=== PATIENT | male | born 1950 | race Caucasian/White ===

== ENCOUNTER → 2020-10-08 12:00 | Outpatient (CLI) | payer MEDICARE, OTHER, SELFPAY ==
[2020-10-08 12:25] LABS: Add Manual Diff / Slide Review NO; Basophils Absolute Auto 100 /uL (0-100); Basophils Percent Auto 0.9 % (0-2); Eosinophils Absolute Auto 200 /uL (0-450); Eosinophils Percent Auto 3.3 % (2-4); Hematocrit 42.5 % (41-53); Hemoglobin 14.8 g/dL (13.5-17.5); Lymphocytes Absolute Auto 1900 /uL (1100-4500); Lymphocytes Percent Auto 26.2 % (25-40); Mean Corpuscular HGB Conc 34.9 % (30-36); Mean Corpuscular Hemoglobin 32.8 PG (26-34); Mean Corpuscular Volume 94.1 fL (80-100); Monocytes Absolute Auto 800 /uL (0-900); Monocytes Percent Auto 10.5 % (3-14); Neutrophils Absolute Auto 4200 /uL (1500-7000); Neutrophils Percent Auto 59.1 % (50-75); Platelet Count 185 X10^3/uL (150-400); Red Blood Cell Count 4.51 X10^6/uL (4.5-5.9); White Blood Cell Count 7.2 X10^3/uL (4.5-11.0)
[2020-10-08 13:26] LABS: BUN Creatinine Ratio 24.7 (6-22); Blood Urea Nitrogen 18 mg/dL (9-20); Calcium 9.5 mg/dL (8.4-10.2); Carbon Dioxide 29 mmol/L (22-32); Chloride 106 mmol/L (98-107); Estimated Glomerular Filt Rate > 60.0 mL/min (>60); Glucose 107 mg/dL (80-110); HEMOLYSIS < 15 (0-50); Potassium 3.7 mmol/L (3.4-5.1); Sodium 141 mmol/L (137-145)
== END ==
PROVIDERS: PCP Family Medicine; Referring Provider Orthopaedic Surgery Orthopaedic Surgery of the Spine; Visit Provider Orthopaedic Surgery Orthopaedic Surgery of the Spine
DX: Z01.818 Encounter for other preprocedural examination (principal); Z01.812 Encounter for preprocedural laboratory examination
CPT/HCPCS: 36415; 80048; 85025; 93005; 93010

== ENCOUNTER → 2020-11-03 09:36 | Outpatient (CLI) | payer MEDICARE, OTHER, SELFPAY ==
[2020-11-03 10:14] LABS: COVID19 -Nasal RAPID Negative (Negative)
== END ==
PROVIDERS: PCP Family Medicine; Visit Provider Physician Assistant
DX: Z01.812 Encounter for preprocedural laboratory examination (principal); Z20.822 Contact with and (suspected) exposure to COVID-19
CPT/HCPCS: 87635

== ENCOUNTER 2020-11-05 06:11 | Inpatient (IN) | payer MEDICARE, OTHER, SELFPAY ==
[2020-10-29 12:47] VITALS: BMI 35.9
[2020-11-05] VITALS (18 sets, daily range): BP systolic 105–148; BP diastolic 65–91; PULSE 7–85; RESP 9–18; TEMP 36.3–36.7; O2SAT 91–96; BMI 35.9
[2020-11-05] MEDS: LACTATED RINGERS 1,000 ML 42 ML IV ×2 (06:55→09:58)
[2020-11-05] MEDS: GABAPENTIN 300 MG CAPSULE PO (07:33)
[2020-11-05] MEDS: ACETAMINOPHEN 325 MG TABLET 975 MG PO (07:33)
--- NOTE | 2020-11-05 07:42 | PC.NURSE ---
Day shift: Pt not on AC unit at this time (1063).
--- NOTE | 2020-11-05 07:50 | PM.PREOP ---
Pre-operative Note COVID-19 COVID-19 status: Negative Result date/Date tested (Pos, Neg/Pending): 11/03/20 Interval Note History & Physical reviewed/Exam performed by Physician: Yes Changes to H&P: No
[2020-11-05] MEDS: CEFAZOLIN 1 GM VIAL 2 GM IV ×2 (08:15→15:42)
--- NOTE | 2020-11-05 08:27 | SUR.OPER ---
Prone on spine table, head in foam head support, padded chest and pelvic supports, gel pad at knees, lower legs supported by pillows; nipples, genitalia and toes free of pressure, arms secured on foam padded arm boards at <90 degrees abduction. Tape over blanket at thigh secured to table.
[2020-11-05] MEDS: BUPIVACAINE LIPOSOME 266 MG/20 ML VIAL INJ ×2 (08:31)
--- NOTE | 2020-11-05 10:49 | P.OP_ITS ---
Operative Date/Time/Diagnoses Date of procedure: 11/05/20 Time of procedure: 08:00 Pre-op diagnosis: 1. L3-4, L4-5 spinal stenosis 2. 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 L3-4 Postero-lateral and posterior interbody fusion 2. L3-4 interbody cage placement. 3. L3-4 decompressive laminectomy with bilateral facetecomies 4. L3-4 Posterior non-segmental instrumentation 5. L4-5 right hemilaminectomy 6. [place] of bone marrow from iliac crest 7. Utilization of microsurgical technique and operating microscope Same procedure as scheduled: Yes Indications: Patient has been having chronic back pain and worsening lumbar radiculopathy. Patient failed multiple conservative management with worsening pain weakness and numbness in her lower extremity. Patient has been having difficulty performing activity of daily living. After discussing risks benefits of treatment options, patient elected proceed with surgery. Surgeon: Moody Calderon Loss Prevention Supervisor: Mainor Vargas Click Yes if Unassisted: No Anesthesia Type: General Operative Notes Closure Type: primary Specimen(s): none sent Prosthetic devices, grafts, tissues, transplants, or devices: Globus revolve screws, Rise cage Estimated Blood Loss (mL): 50 Blood products transfused: none Procedure in detail: Patient was seen in the preoperative area. Risks and benefits of the surgery was discussed with the patient. Informed consent was obtained from the patient and placed in the chart. Surgical site was marked. Patient was taken to the operative room. General anesthesia was administered. Prophylactic antibiotic was given to the patient less than 30 min before the incision was made. Patient was placed into a prone position on the John table. Patient's back was then prepped and draped in the sterile fashion. Time- out was performed at this time. Using AP and lateral C-arm imaging the interval between L3-4, L4-5 was identified and marked on patient's back. A 2 inch incision 2 in from midline was made on the right side first. The fascia was incised in line with skin incision. Globus MARS retractors was placed inside the incision and docked onto the L3 lamina. Using microsurgical technique and operating microscope, a L3 laminectomy and L3-4 facetectomy was performed using a Kerrison rongeur. The disc space at L3-4 was identified. And a total diskectomy was performed at L3-4 level. The endplates were decorticated using a rasp and shaver. The total diskectomy and decortication was performed at L3-4 level in order to to accomplish a L3-4 fusion. The local bone from the laminectomy and facetectomy was saved for local bone grafting. After the total diskectomy and decortication was completed, Globus Trifecta bone graft material was combined with local bone that was harvested earlier. At this time, a separate skin is incision was made over the iliac crest. A Jamshidi needle was inserted into the iliac crest through a separate skin incision. 5 cc of bone marrow aspiration was obtained through the separate skin incision using a Jamshidi needle from the iliac crest. The bone marrow aspiration was combined with local bone and theTrifecta bone grafting material. The bone grafting material was placed into the L3-4 interbody space along with a expandable cage. The cage was expanded to its maximum height using the torque limiting screwdriver. At this time the MARS retractor was redirected over the L4 lamina. Using microsurgical technique and operating microscope, a L4-5 heminectomy was performed using the Kerrison rongeur. The ligamentum flavum was also resected at the side of the hemilaminectomy for further decompression of the epidural space. At this time a mirror image incision was made on the left side. The fascia was incised in line with the skin incision. Globus MARS retractor was inserted and docked onto the L3-4 posterolateral gutter. Using the power drill, posterior- lateral decortication was performed at L3-4 level until bleeding cortical bone was identified. The remaining bone grafting material was placed into the L3-4 posterior lateral gutter he order to accomplish posterolateral fusion at the L3- 4 level. Using the double C-arm technique, pedicle screws were placed into the L3-4 pedicles bilaterally. This was done by placing the Jamshidi needle into the pedicles, then placing the guidewires over the Jamshidi needle, and finally placing the cannulated screws over the guidewires bilaterally. After the pedicle screws were placed, 2 titanium rods was locked into the heads of the pedicle screws using locking caps and torque limiting screwdriver. After all the hardware was placed, and confirmed with AP and lateral C-arm imaging, the wound was then irrigated with sterile normal saline and packed with Ray-Biju gauze for 3 min to accomplish hemostasis. After the gauze was removed the deep fascia was closed with #1 Vicryl suture. The subcutaneous layer was closed with 2-0 Vicryl. The skin was closed with skin lj. Patient tolerated the procedure well. There were no complications. Complications: none Post-operative Condition: stable Disposition: PACU Plan for aftercare: Admit to inpatient hospital
--- NOTE | 2020-11-05 10:51 | DI.RAD.S_ITS ---
PROCEDURE: XR LUMBAR SPINE 2-3V INDICATIONS: L3-4 TLIF TECHNIQUE: 2 intraoperative low resolution fluoroscopic spot films were obtained in the lower lumbar COMPARISON: None. FINDINGS: Low resolution fluoroscopic intraoperative spot films show L3 and L4 posterior ld and screw instrumentation in good position. There has been a L3-4 discectomy spacer graft in position. IMPRESSION: Fluoroscopic guidance Approved by: Adolfo Grace M.D. on 11/05/2020 at 9:59
--- NOTE | 2020-11-05 10:52 | SUR.PHASEI ---
Patient to PACU after general with Dr Avelar and Ryne RN, SBAr report received.. Airway obstructed requiring jaw thrust. Placed on 4L oxygen via nasal cannula. O2 sat 95% on 4L NC with jaw thrust.
--- NOTE | 2020-11-05 11:01 | PC.NURSE ---
Day shift: Pt remains not on AC unit at this time.
--- NOTE | 2020-11-05 11:02 | SUR.PHASEI ---
Pt awake, answering questions. Oxygen on 4L NC. Pain 05/02. Pt turned with min assist.
[2020-11-05] MEDS: OXYCODONE IR 5 MG TABLET PO (11:23)
--- NOTE | 2020-11-05 11:49 | PC.NURSE ---
Day shift: Pt on unit from PACU at approx 1150. He is A&Ox4. CMS WNL. VS WNL. 95% 2L NC. Denies any chest pain or nausea. Tolerating SCD's. Op-site dressing is CDI. Pt is A&Ox4. Tolerating ice water. He did not feel like eating lunch today. IV fluids per MAR infusing. Pt has a umbilical hernia that is approx size of ping-pong ball. Oriented to room and call light. Call light in reach. Reports back pain of 4/10. Bed alarm on. High fall risk for now. Reports post-void dribbles due to TURP he had in the past. Will continue w/ post-op plan of care.
--- NOTE | 2020-11-05 11:55 | SUR.PHASEI ---
Patient transferred in bed to room 209 by this RN on 2L of oxygen NC. SBAR updated at bedside to Alirio Lakhani. Dressing clean, dry and intact. Pt able to roll independently, bed in low position, call light in place. Glasses on, belongings with patient.
[2020-11-05] MEDS: SODIUM CHLORIDE 0.9% 1,000 ML 100 ML IV ×2 (11:57→21:39)
[2020-11-05] MEDS: OXYCODONE IR 5 MG TABLET 10 MG PO (14:17)
--- NOTE | 2020-11-05 15:44 | PT.IIE ---
Current Diagnoses Other spondylosis with radiculopathy, lumbosacral region (11/05/20) Spinal stenosis, lumbar region without neurogenic claudication (11/05/20) Surgery Performed Operation Date: 11/05/20 07:45 Actual Procedures p L4-5 right hemilaminectomy, L3-4 TLIF w. posterior instrumentation - Moody Calderon MD Medical History (Last Updated 10/29/20 @ 13:19 by Carmen Rodriguez RN) Arthritis Fatty liver Former smoker HTN (hypertension) NYDIA (obstructive sleep apnea) Prostate cancer (~12/2018) Sciatica Shortness of breath Umbilical hernia Physical Therapy Inpatient Evaluation/Re-Eval M1 PT/OT-IP Prior Functional Status Start: 11/05/20 14:55 Freq: NEEDED Status: Active Protocol: Document 11/05/20 15:44 AW (Rec: 11/05/20 15:59 AW [id number]) Medical Review Prior Functional Status Medical History Reviewed Yes Communication WNL. Pt is an effective verbal communicator. Mobility and Gait Independent without assistive device. Pt is able to walk and stand up to an hour at a time baseline and then is limited by RLE pain. Activities of Daily Living and IADL's Independent with use of slip on shoes for dressing. Bathing and toileting IND. Pt is an active grain combine driver. He manages his own medications and finances. Prior Functional Level (Other details) PMH includes prostate cancer currently on lupron, HTN. Social History Household Members spouse Living Arrangements House Number of Floors (Floors) One Floor Number of Stairs To Enter/Railing? 2 JOSLYN without rail through garage and front entrance. Back entrance has 3 JOSLYN with narrow bilateral rails. Home Environment High Toilet,Walk in Shower, Built-In Shower Seat Home Equipment Front Wheel Walker,Hand Held Shower,Grab Bars Near Toilet, Grab Bars In Shower Employment Status Retired Additional Social History Comment Pt lives in [place] with his , Stephany. Both are retired. Stephany is able to provide up to min assist for mobility at discharge. M2 PT-IP Current Condition Start: 11/05/20 14:55 Freq: NEEDED Status: Active Protocol: Document 11/05/20 15:44 AW (Rec: 11/05/20 16:01 AW [id number]) Physical Therapy Current Condition Current Condition Evaluation Date 11/05/20 Treatment Diagnosis L4-5 hemilami; L3-4 TLIF; impaired mobility and gait Onset Date 11/05/20 Precautions Lumbar Precautions Log Roll,No Twisting,Limit Bending,Lifting Restriction of 10 lbs,Gait Belt above Incisional Area M3 PT-IP Subjective Start: 11/05/20 14:55 Freq: NEEDED Status: Active Protocol: Document 11/05/20 15:44 AW (Rec: 11/05/20 16:01 AW [id number]) Subjective Physical Therapy Visit Type Type Initial Evaluation Visit Start Time 15:06 Visit Stop Time 15:44 Total Visit Minutes 38 Notes Pt's is present throughout evaluation. Pain meds administered 45 min prior to eval. 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 Physical Therapy Visit Comments Patient Comments Pt is willing to participate with PT, would like to use the toilet Patient Goals Return home with spouse support Therapy Pain Assessment Pain When Pain Assessed During Mobility Pain Present Pain Present Pain Reported Location back Intensity 3 Scale Used Numeric (0 - 10) Pain Management Techniques Timing of Activity with Medications M4 PT-IP Mobility and Gait Start: 11/05/20 14:55 Freq: NEEDED Status: Active Protocol: Document 11/05/20 15:44 AW (Rec: 11/05/20 16:11 AW [id number]) PT-Bed Mobility Assessment Rolling Type of Rolling Log Rolling,Roll to Left Level of Assist Contact Guard Assistance Supine to Sit Supine to Sit Contact Guard Assistance PT-Transfer Assessment Sit to and From Stand Sit to and from Stand Standby Assistance,Use of Upper Extremities Equipment Transfer Assistive Device Gait Belt,Front Wheeled Walker Orthotic/Prosthetic Devices or Brace: No Transfers Transfer Destination Chair Transfer Technique ambulated with FWW Transfer Ability Level of Assist Contact Guard Assistance Comments Mobility Comments Pt was lying in bed as PT arrived. BP 114/68 HR 68 SpO2 94% on room air. Educated pt on back precautions and pt was able to complete log roll transition to sitting EOB CGA. He stood and ambulated to the toilet with FWW SBA. Standing balance while voiding was good. Pt ambulated to the sink with FWW SBA and proceeded to ambulate the halls with FWW 400 feet SBA. On return to the room, pt transferred to the chair. He was left with call light and tray table in reach. He agreed to use the call light for all mobility needs. Gait Assessment Gait Gait Assistance Required: Standby Assistance Distance (Feet) 400 Able to Maintain Weight Bearing Status Yes During Gait Assistive Devices Assistive Device Gait Belt,Front Wheeled Walker Orthotic/Prosthetic Devices or Brace: No Gait Deviations General Gait Pattern Antalgic,Decreased Stride Length Factors Limiting Gait Function Factors Limiting Gait Function Limited Range of Motion,Pain Stair Climbing Assessment Evaluation Level of Assist On Stairs Contact Guard Assistance Devices Stair Climbing Assistive Devices Left Railing,Right Railing Technique/Endurance Stair Climbing Direction Ascend and Descend Stair Climbing Technique Step Over Step Number of Steps Climbed 3 Query Text: Stair Climbing Set # Repetitions (reps) 2 Comments Stair Climbing Comments 1st set with B rails SBA. 2nd set with unilateral rail CGA. PT-Balance Assessment Sitting Balance and Reactions Static Sitting Balance Ability Good Dynamic Sitting Balance Ability Good Standing Balance and Reactions Static Standing Balance Ability Good Dynamic Standing Balance Ability Good Device Used FWW M5 PT-IP Objective Assessments Start: 11/05/20 14:55 Freq: NEEDED Status: Active Protocol: Document 11/05/20 15:44 AW (Rec: 11/05/20 16:03 AW [id number]) Orientation Orientation/Cognition Level of Alertness Alert Orientation Name,Day of Week,Place, Situation Language Function Ability No Deficits Noted Safety Awareness Understands Safety Issues Memory Description No Deficits Noted Comments Pt is slightly impulsive but is easily redirected. Gross Range of Motion Upper Extremity ROM Assessment Within Functional Limits Lower Extremity ROM Assessment Within Functional Limits Strength Upper Extremity Strength Assessment Within Functional Limits Lower Extremity Strength Assessment Within Functional Limits Sensation Assessment Sensation Gross Sensation WNL Comments Sensation Comments Pt denies pain in RLE during ambulation. Muscle Tone Muscle Tone WNL Yes M6 PT-IP Treatment Start: 11/05/20 14:55 Freq: NEEDED Status: Active Protocol: Document 11/05/20 15:44 AW (Rec: 11/05/20 16:04 AW [id number]) Physical Therapy Treatment Education Education Provided Precautions,Post-Op Packet, Safety Other Treatments Other Treatment Performed Provided education on PT plan of care, post-op precautions, and safe use of FWW. M7 PT-IP Assessment and Plan Start: 11/05/20 14:55 Freq: NEEDED Status: Active Protocol: Document 11/05/20 15:44 AW (Rec: 11/05/20 16:07 AW [id number]) PT Summary Assessment and Plan Potential Rehabilitation Potential Good Status of Condition at Evaluation Evolving Summary Impairments Pain,ROM,Strength,Bed Mobility ,Transfers,Gait Assessment Summary Jose is a 70 yo man seen for PT evaluation on POD0 following L4-5 hemilaminectomy and L3-4 TLIF. Pt is independent in all regards though endorses claudication- type symptoms which limit his standing/walking tolerance at baseline. Pt required no more than CGA during evaluation. He has his and all needed equipment at home. PT anticipates he will be safe to discharge home with assist and outpatient PT once medically stable. Goals Bed Mobility Goal Independent Transfer Goal Independent,Front Wheeled Walker Gait Goal Independent,Front Wheel Walker Gait Distance 400 Days to Meet Goals 2 Frequency of Treatment Frequency Of Treatment Twice a Day Treatment Plan Physical Therapy Treatment Plan Bed Mobility Training,Transfer Training,Gait Training, Therapeutic Exercise,Balance Retraining,Post Op Education, Discharge Planning,Hot or Cold Pack Other Recommendations and Next Treatment reinforce precautions, Focus mobility as tolerated. Precautions Lumbar Precautions Log Roll,No Twisting,Limit Bending,Lifting Restriction of 10 lbs,Gait Belt above Incisional Area Recommendations To Nursing Amount of Assist Needed Standby Assistance Discharge Recommendations PT Discharge Recommendations Home with Assistance, Outpatient PT Transportation Needs at Discharge Private Vehicle
--- NOTE | 2020-11-05 16:41 | OT.IP.EVAL ---
Current Diagnoses Other spondylosis with radiculopathy, lumbosacral region (11/05/20) Spinal stenosis, lumbar region without neurogenic claudication (11/05/20) Surgery Performed Operation Date: 11/05/20 07:45 Actual Procedures p L4-5 right hemilaminectomy, L3-4 TLIF w. posterior instrumentation - Moody Calderon MD Past Medical History (Last Updated 10/29/20 @ 13:19 by Carmen Rodriguez, RN) Arthritis Fatty liver Former smoker HTN (hypertension) Hx of arthroscopy of right knee Hx of fusion of cervical spine (~2003) Hx of transurethral resection of prostate NYDIA (obstructive sleep apnea) Prostate cancer (~12/2018) Sciatica Shortness of breath Umbilical hernia Surgical History (Last Updated 10/29/20 @ 13:18 by Carmen Rodriguez RN) Hx of arthroscopy of right knee Hx of fusion of cervical spine (~2003) Hx of transurethral resection of prostate Occupational Therapy Inpatient Evaluation/Re-Eval M1 PT/OT-IP Prior Functional Status Start: 11/05/20 14:55 Freq: NEEDED Status: Active Protocol: Document 11/05/20 17:11 CGR (Rec: 11/05/20 17:20 CGR [id number]) Medical Review Prior Functional Status Medical History Reviewed Yes Communication WNL. Pt is an effective verbal communicator. Mobility and Gait Independent without assistive device. Pt is able to walk and stand up to an hour at a time baseline and then is limited by RLE pain. Activities of Daily Living and IADL's Independent with use of slip on shoes for dressing. Bathing and toileting IND. 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 Prior Functional Level (Other details) PMH includes prostate cancer currently on lupron, HTN. Social History Household Members spouse Living Arrangements House Number of Floors (Floors) One Floor Number of Stairs To Enter/Railing? 2 JOSLYN without rail through garage and front entrance. Back entrance has 3 JOSLYN with narrow bilateral rails. Home Environment High Toilet,Walk in Shower, Built-In Shower Seat Home Equipment Front Wheel Walker,Hand Held Shower,Grab Bars Near Toilet, Grab Bars In Shower Employment Status Retired Additional Social History Comment Pt lives in [place] with his , Stephany. Both are retired. Stephany is able to provide up to min assist for mobility at discharge. M1 PT/OT-IP Prior Functional Status Start: 11/05/20 17:11 Freq: NEEDED Status: Active Protocol: Document 11/05/20 17:11 CGR (Rec: 11/05/20 17:20 CGR [id number]) Medical Review Prior Functional Status Medical History Reviewed Yes Communication WNL. Pt is an effective verbal communicator. Mobility and Gait Independent without assistive device. Pt is able to walk and stand up to an hour at a time baseline and then is limited by RLE pain. Activities of Daily Living and IADL's Independent with use of slip on shoes for dressing. Bathing and toileting IND. 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 Prior Functional Level (Other details) PMH includes prostate cancer currently on lupron, HTN. Social History Household Members spouse Living Arrangements House Number of Floors (Floors) One Floor Number of Stairs To Enter/Railing? 2 JOSLYN without rail through garage and front entrance. Back entrance has 3 JOSLYN with narrow bilateral rails. Home Environment High Toilet,Walk in Shower, Built-In Shower Seat Home Equipment Front Wheel Walker,Hand Held Shower,Grab Bars Near Toilet, Grab Bars In Shower Employment Status Retired Additional Social History Comment Pt lives in [place] with his , Stephany. Both are retired. Stephany is able to provide up to min assist for mobility at discharge. M2 OT-IP Current Condition Start: 11/05/20 17:11 Freq: Status: Active Protocol: Document 11/05/20 17:11 CGR (Rec: 11/05/20 17:20 CGR [id number]) Occupational Therapy Current Condition Current Condition Evaluation Date 11/05/20 Treatment Diagnosis L3-5 TLIF Diagnosis Onset Date 11/05/20 Post Operative Precautions Lumbar Precautions Log Roll,No Twisting,Limit Bending,Lifting Restriction of 10 lbs,Gait Belt above Incisional Area M3 OT- IP Subjective and Pain Start: 11/05/20 17:11 Freq: Status: Active Protocol: Document 11/05/20 17:11 CGR (Rec: 11/05/20 17:20 CGR [id number]) OT- Subjective Occupational Therapy Visit Type Type Initial Evaluation Visit Start Time 15:55 Visit Stop Time 16:41 Total Visit Minutes 46 OT Pain Assessment Pain When Pain Assessed At Rest Pain Present Pain Present Pain Reported Location back Intensity 1 Scale Used Numeric (0 - 10) Management Techniques Modification of Treatment,Re- positioning M4 OT- IP ADL's Start: 11/05/20 17:11 Freq: Status: Active Protocol: Document 11/05/20 17:11 CGR (Rec: 11/05/20 17:20 CGR [id number]) OT [id number] Comments OT Self-Feeding Comments Not meal time OT ADL-Grooming Comments OT Grooming Comments Pt declined OT ADL-Oral Care Comments Oral Care Comments Pt declined OT ADL-Dressing General Eval Lower Body Dressing Ability Total Assistance Areas Needing Assistance Socks Comments OT Dressing Comments Pt will need use of LB dressing equipment. Discussed with pt but items not issued or demonstrated. OT ADL-Toileting Comments OT Toileting Comments Pt declined need. OT ADL-Bathing Comments OT Bathing Comments Not performed M5 OT- IP IADL's Start: 11/05/20 17:11 Freq: Status: Active Protocol: Document 11/05/20 17:11 CGR (Rec: 11/05/20 17:20 CGR [id number]) OT-Instrumental Activities of Daily Living Deficits IADL Deficits Identified No Deficits Home Safety Awareness Awareness of Need for Assistance at Home Good Awareness Ability to Problem Solve Emergency Able to Problem Solve Situations Medication Management Medication Management No Deficits Identified Money Management Money Management No Deficits Identified Meal Preparation Meal Preparation Caregiver Provides Assist Body Team Member Body Team Member Caregiver Provides Assist Driving Driving Comments Pt states understanding that he should not drive till approved by MD. [place] OT- IP Functional Cognition Start: 11/05/20 17:11 Freq: Status: Active Protocol: Document 11/05/20 17:11 CGR (Rec: 11/05/20 17:20 CGR [id number]) Cognitive Factors Limiting Selfcare Function Cognitive Ability Level of Alertness Alert Patient Orientation Name,Age,Birthday,Month,Date, Year,Day of Week,Place, Situation Attention Span Ability Capable of Focused Attention, Capable of Sustained Attention Ability to Follow Commands Able to Follow Multi-Step Commands Memory Description No Deficits Noted Safety Awareness No Deficits Noted OT- Vision and Hearing OT- Hearing Assessment OT- Hearing Assessment WFL OT- Vision Assessment Visual Acuity Glasses All The Time Visual Attentiveness WFL Occular Pursuits WFL Visual Convergence WFL Vision Assessment Comments trifocals M7 OT- IP Mobility and Balance Start: 11/05/20 17:11 Freq: Status: Active Protocol: Document 11/05/20 17:11 CGR (Rec: 11/05/20 17:20 CGR [id number]) OT-Transfer Assessment Sit to and From Stand Sit to and from Stand Standby Assistance Transfers Transfer Ability Standby Assistance Technique Transfer Destination Chair Transfer Technique Stand Step Pivot Devices Transfer Assistive Devices Gait Belt,Front Wheeled Walker Comments Mobility Comments Mobility around the room OT- Balance Assessment Sitting Balance and Reactions Static Sitting Balance Ability Good Dynamic Sitting Balance Ability Fair M8 OT- IP Objective Assessments Start: 11/05/20 17:11 Freq: Status: Active Protocol: Document 11/05/20 17:11 CGR (Rec: 11/05/20 17:20 CGR [id number]) OT Gross Range of Motion Upper Extremity Range of Motion Assessment Within Functional Limits OT Strength Upper Extremity Strength Assessment Within Functional Limits OT- Coordination Assessment Upper Extremity Finger to Nose Test Within Functional Limits Finger Tapping Test Within Functional Limits OT-Muscle Tone Assessment Muscle Tone WNL Yes OT Sensation Assessment Edema Edema Absent M9 OT- IP Assessment and Plan Start: 11/05/20 17:11 Freq: Status: Active Protocol: Document 11/05/20 17:11 CGR (Rec: 11/05/20 17:20 CGR [id number]) OT Summary Assessment and Plan Potential Rehabilitation Potential Excellent Analytic Complexity at Evaluation Low Summary OT Impairments Pain,Balance,Functional Mobility,Dressing,Toileting, Bathing,Toilet Transfers, Shower Transfers,Activity Tolerance Progress Towards Goals Progressing Toward Goals Assessment Summary Pt presents as a low complexity evaluation s/p admit for L3-5 TLIF. Pt is progressing well ambulating with SBA on day 0 post op. Discussed home safety, DME needs, and back precautions. Pt will need follow up on LB dressing. Pt is likely to be safe for discharge home. Goals Grooming Goal Independent Dressing Goal Independent Toileting Goal Independent Bathing Goal Independent Toilet Transfer Goal Independent Shower Transfer Goal Independent Days to Meet Goals 2 Frequency of Treatment Frequency Of Treatment Once a Day Treatment Plan OT Treatment Plan ADL Training,Functional Mobility,Patient/Family Education,Discharge Planning Other Treatment Recommendations and Next shower and LB dressing Treatment Focus Discharge Recommendations OT Discharge Recommendations Home with Assistance Transportation Needs at Discharge Private Vehicle
[2020-11-05] MEDS: SENNOSIDES 8.6 MG TABLET 17.2 MG PO (20:23)
[2020-11-05] MEDS: DOCUSATE 100 MG CAPSULE PO (20:25)
[2020-11-06] MEDS: CEFAZOLIN 1 GM VIAL 2 GM IV (00:01)
[2020-11-06 00:05] VITALS: BP 128/63; PULSE 66; RESP 16; TEMP 36.7; O2SAT 97
[2020-11-06] MEDS: hydrOXYzine pamoate 25 MG CAPSULE PO (00:13)
[2020-11-06] MEDS: ACETAMINOPHEN 325 MG TABLET 650 MG PO (00:13)
--- NOTE | 2020-11-06 03:31 | PC.NURSE ---
Patient is alert and oriented. Breath sounds CTA with RA sat of 97%. HRR. Denies nausea. BT hypoactive and patient denies having passed any flatus since return from surgery. Voiding frequently and did have episode of urgency earlier this shift; walking to bathroom and using urinal to void. Is moving himself and ambulates well/steady with walker. Requested patient call for assistance but has been found several times having transferred himself to chair. Uncomfortable in bed and was lying on window seat for awhile but now again in chair. Discussed importance of calling for staff assistance and patient states he is agreeable to do so. Dressing to back intact with shadow drainage. CIWA is 0 and patient refuses use of seizure pads. Complained earlier of discomfort in back and was medicated with Tylenol and Vistaril and now reports no pain but still some discomfort; declines ice or warm blanket. Has good pedal pulses bilaterally and denies tingling/numbness. Refuses use of SCD's.
[2020-11-06 05:57] VITALS: BP 128/81; PULSE 68; RESP 16; TEMP 36.3; O2SAT 95
[2020-11-06] MEDS: OXYCODONE IR 5 MG TABLET 10 MG PO (09:13)
[2020-11-06] MEDS: SODIUM CHLORIDE 0.9% FLUSH 10 ML IV (09:13)
[2020-11-06] MEDS: GABAPENTIN 300 MG CAPSULE PO (09:13)
[2020-11-06] MEDS: hydroCHLOROthiazide 25 MG TABLET PO (09:13)
[2020-11-06] MEDS: DOCUSATE 100 MG CAPSULE PO (09:13)
[2020-11-06 10:00] VITALS: BP 133/81; PULSE 67; RESP 18; TEMP 36.1; O2SAT 94
--- NOTE | 2020-11-06 10:00 | PT.IPTN ---
Current Diagnoses Other spondylosis with radiculopathy, lumbosacral region (11/05/20) Spinal stenosis, lumbar region without neurogenic claudication (11/05/20) Surgery Performed Operation Date: 11/05/20 07:45 Actual Procedures p L4-5 right hemilaminectomy, L3-4 TLIF w. posterior instrumentation - Moody Calderon MD Physical Therapy Treatment Note M2 PT-IP Current Condition Start: 11/05/20 14:55 Freq: NEEDED Status: Active Protocol: Document 11/05/20 15:44 AW (Rec: 11/05/20 16:01 AW [id number]) Physical Therapy Current Condition Current Condition Evaluation Date 11/05/20 Treatment Diagnosis L4-5 hemilami; L3-4 TLIF; impaired mobility and gait Onset Date 11/05/20 Precautions Lumbar Precautions Log Roll,No Twisting,Limit Bending,Lifting Restriction of 10 lbs,Gait Belt above Incisional Area M3 PT-IP Subjective Start: 11/05/20 14:55 Freq: NEEDED Status: Active Protocol: Document 11/06/20 10:00 AW (Rec: 11/06/20 10:54 AW [id number]) Subjective Physical Therapy Visit Type Type Treatment Note Visit Start Time 09:46 Visit Stop Time 10:00 Total Visit Minutes 14 Notes Pt's was present. PT answered her questions about car transfers and home equipment. Physical Therapy Visit Comments Patient Comments Pt is willing to participate with PT. Therapy Pain Assessment Pain When Pain Assessed At Rest Pain Present Pain Present Pain Reported Location back Intensity 2 Scale Used Numeric (0 - 10) Pain Management Techniques Timing of Activity with Medications M4 PT-IP Mobility and Gait Start: 11/05/20 14:55 Freq: NEEDED Status: Active Protocol: Document 11/06/20 10:00 AW (Rec: 11/06/20 10:54 AW [id number]) PT-Transfer Assessment Sit to and From Stand Sit to and from Stand Standby Assistance Equipment Transfer Assistive Device None,Front Wheeled Walker Orthotic/Prosthetic Devices or Brace: No Transfers Transfer Destination Chair Transfer Technique Stand Step Pivot Transfer Ability Level of Assist Standby Assistance Comments Mobility Comments Pt was sitting up in the chair as PT arrived. He stood, ambulated the halls, and completed stair training SBA. He did require one cue to avoid twisting in stance but otherwise showed good attention to post op precautions. Gait Assessment Gait Gait Assistance Required: Standby Assistance Distance (Feet) 200 Able to Maintain Weight Bearing Status Yes During Gait Assistive Devices Assistive Device Gait Belt,Front Wheeled Walker Orthotic/Prosthetic Devices or Brace: No Gait Deviations General Gait Pattern Within Normal Limits Factors Limiting Gait Function Factors Limiting Gait Function Limited Range of Motion,Pain Stair Climbing Assessment Evaluation Level of Assist On Stairs Standby Assistance Devices Stair Climbing Assistive Devices Left Railing,Right Railing Technique/Endurance Stair Climbing Direction Ascend and Descend Stair Climbing Technique Step Over Step,Step to Step Number of Steps Climbed 3 Stair Climbing Set # Repetitions (reps) 2 Comments Stair Climbing Comments Step over step ascending. I couldn't do that before! And step-to descending leading with LLE. PT-Balance Assessment Sitting Balance and Reactions Static Sitting Balance Ability Normal Dynamic Sitting Balance Ability Normal Standing Balance and Reactions Static Standing Balance Ability Good Dynamic Standing Balance Ability Good Device Used FWW M5 PT-IP Objective Assessments Start: 11/05/20 14:55 Freq: NEEDED Status: Active Protocol: Document 11/05/20 15:44 AW (Rec: 11/05/20 16:03 AW [id number]) Orientation Orientation/Cognition Level of Alertness Alert Orientation Name,Day of Week,Place, Situation Language Function Ability No Deficits Noted Safety Awareness Understands Safety Issues Memory Description No Deficits Noted Comments Pt is slightly impulsive but is easily redirected. Gross Range of Motion Upper Extremity ROM Assessment Within Functional Limits Lower Extremity ROM Assessment Within Functional Limits Strength Upper Extremity Strength Assessment Within Functional Limits Lower Extremity Strength Assessment Within Functional Limits Sensation Assessment Sensation Gross Sensation WNL Comments Sensation Comments Pt denies pain in RLE during ambulation. Muscle Tone Muscle Tone WNL Yes M6 PT-IP Treatment Start: 11/05/20 14:55 Freq: NEEDED Status: Active Protocol: Document 11/06/20 10:00 AW (Rec: 11/06/20 10:54 AW [id number]) Physical Therapy Treatment Education Education Provided Precautions,Safety M7 PT-IP Assessment and Plan Start: 11/05/20 14:55 Freq: NEEDED Status: Active Protocol: Document 11/06/20 10:00 AW (Rec: 11/06/20 10:54 AW [id number]) PT Summary Assessment and Plan Potential Rehabilitation Potential Good Status of Condition at Evaluation Stable Summary Progress Towards Goals Progressing Toward Goals Assessment Summary Pt improved all mobility to SBA and showed good attention to all precautions. PT answered all questions including car transfers, safe use of FWW at home, and level of activity after surgery. Pt is safe to discharge home and does not need further acute PT . Goals Bed Mobility Goal Independent Transfer Goal Independent,Front Wheeled Walker Gait Goal Independent,Front Wheel Walker Gait Distance 400 Days to Meet Goals 2 Frequency of Treatment Frequency Of Treatment Discharge Treatment Plan Physical Therapy Treatment Plan Bed Mobility Training,Transfer Training,Gait Training, Therapeutic Exercise,Balance Retraining,Post Op Education, Discharge Planning,Hot or Cold Pack Precautions Lumbar Precautions Log Roll,No Twisting,Limit Bending,Lifting Restriction of 10 lbs,Gait Belt above Incisional Area Recommendations To Nursing Amount of Assist Needed Standby Assistance Discharge Recommendations PT Discharge Recommendations Home with Assistance, Outpatient PT Transportation Needs at Discharge Private Vehicle
--- NOTE | 2020-11-06 10:24 | OT.IP.TRT ---
Current Diagnoses Other spondylosis with radiculopathy, lumbosacral region (11/05/20) Spinal stenosis, lumbar region without neurogenic claudication (11/05/20) Surgery Performed Operation Date: 11/05/20 07:45 Actual Procedures p L4-5 right hemilaminectomy, L3-4 TLIF w. posterior instrumentation - Moody Calderon MD Occupational Therapy Treatment Note M2 OT-IP Current Condition Start: 11/05/20 17:11 Freq: Status: Active Protocol: Document 11/05/20 17:11 CGR (Rec: 11/05/20 17:20 CGR [id number]) Occupational Therapy Current Condition Current Condition Evaluation Date 11/05/20 Treatment Diagnosis L3-5 TLIF Diagnosis Onset Date 11/05/20 Post Operative Precautions Lumbar Precautions Log Roll,No Twisting,Limit Bending,Lifting Restriction of 10 lbs,Gait Belt above Incisional Area M3 OT- IP Subjective and Pain Start: 11/05/20 17:11 Freq: Status: Active Protocol: Document 11/06/20 08:45 [facility] (Rec: 11/06/20 10:38 [facility] [id number]) OT- Subjective Occupational Therapy Visit Type Type Treatment Note Visit Start Time 08:45 Visit Stop Time 10:24 Total Visit Minutes 27 Notes Pt seen for split treatment, [id number] and [id number] Occupational Therapy Visit Comments Patient Comments Pt's present for caregiver training 2nd time. Patient/Caregiver Goals TO go home. OT Pain Assessment Pain When Pain Assessed At Rest Pain Present Pain Present Denied Pain M4 OT- IP ADL's Start: 11/05/20 17:11 Freq: Status: Active Protocol: Document 11/06/20 08:45 [facility] (Rec: 11/06/20 10:38 [facility] [id number]) OT ADL-Dressing General Eval Upper Body Dressing Ability Independent Lower Body Dressing Ability Standby Assistance Comments OT Dressing Comments ABle to issue and go over LB dressing equipment so pt able to safely use to get dressed with good safety and follow through of back precautions. OT ADL-Toileting Comments OT Toileting Comments Pt did not have to go. Able to take about toilet paper aid to assist with hygiene needs of possibility of getting a bidet. OT ADL-Bathing Comments OT Bathing Comments Pt not wanting to shower at this time. M5 OT- IP IADL's Start: 11/05/20 17:11 Freq: Status: Active Protocol: Document 11/05/20 17:11 CGR (Rec: 11/05/20 17:20 CGR [id number]) OT-Instrumental Activities of Daily Living Deficits IADL Deficits Identified No Deficits Home Safety Awareness Awareness of Need for Assistance at Home Good Awareness Ability to Problem Solve Emergency Able to Problem Solve Situations Medication Management Medication Management No Deficits Identified Money Management Money Management No Deficits Identified Meal Preparation Meal Preparation Caregiver Provides Assist Title Officer Title Officer Caregiver Provides Assist Driving Driving Comments Pt states understanding that he should not drive till approved by . M6 OT- IP Functional Cognition Start: 11/05/20 17:11 Freq: Status: Active Protocol: Document 11/06/20 08:45 [facility] (Rec: 11/06/20 10:38 [facility] [id number]) Cognitive Factors Limiting Selfcare Function Cognitive Comments Cognitive Assessment Comments NO deficits. M7 OT- IP Mobility and Balance Start: 11/05/20 17:11 Freq: Status: Active Protocol: Document 11/06/20 08:45 [facility] (Rec: 11/06/20 10:38 [facility] [id number]) OT-Transfer Assessment Sit to and From Stand Sit to and from Stand Standby Assistance Transfers Transfer Ability Standby Assistance Technique Transfer Destination Chair Transfer Technique Stand Step Pivot Devices Transfer Assistive Devices None,Front Wheeled Walker OT- Balance Assessment Sitting Balance and Reactions Static Sitting Balance Ability Normal Dynamic Sitting Balance Ability Good Standing Balance and Reactions Static Standing Balance Ability Good M8 OT- IP Objective Assessments Start: 11/05/20 17:11 Freq: Status: Active Protocol: Document 11/05/20 17:11 CGR (Rec: 11/05/20 17:20 R [id number]) OT Gross Range of Motion Upper Extremity Range of Motion Assessment Within Functional Limits OT Strength Upper Extremity Strength Assessment Within Functional Limits OT- Coordination Assessment Upper Extremity Finger to Nose Test Within Functional Limits Finger Tapping Test Within Functional Limits OT-Muscle Tone Assessment Muscle Tone WNL Yes OT Sensation Assessment Edema Edema Absent M9 OT- IP Assessment and Plan Start: 11/05/20 17:11 Freq: Status: Active Protocol: Document 11/06/20 08:45 [facility] (Rec: 11/06/20 10:38 [facility] [id number]) OT Summary Assessment and Plan Potential Rehabilitation Potential Excellent Analytic Complexity at Evaluation Low Summary OT Impairments Pain,Balance,Functional Mobility,Dressing,Toileting, Bathing,Toilet Transfers, Shower Transfers,Activity Tolerance Progress Towards Goals Progressing Toward Goals Assessment Summary Pt issued LB dressing equipment and now able to do his LB dressing needs with good safety and follow through of back precautions. Pt's present for caregiver training. Pt to go home with his when medically stable . Discharge Recommendations OT Discharge Recommendations Home with Assistance Transportation Needs at Discharge Private Vehicle
--- NOTE | 2020-11-06 10:55 | P.DS_ITS ---
History of Present Illness History of Present Illness Date Patient Seen: 11/06/20 Time Patient Seen: 07:50 Chief complaint: low back pain Narrative: The patient is complaining of mild back pain this morning, which is well controlled with current pain regimen. He denies any fevers, chills, night sweats. Denies numbness or tingling in bilateral lower extremities. He is working with physical therapy and doing stairs. Overall he is feeling well and would like to go home today. Discharge Providers Provider Date of admission: 11/05/20 06:11 Discharge Date: 11/06/20 Primary care physician: Jaime Arrington MD Consults: 11/05/20 11:49 Consult to Occupational Therapy Evaluate & Treat Comment: Physician Instructions: Evaluate and treat Consult to Physical Therapy Evaluate & Treat Comment: Physician Instructions: Evaluate and Treat Discharge provider: Eileen Armijo PA-C Summary Hospital Course Discharge Diagnosis: 1. L3-4, L4-5 spinal stenosis 2. 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 L3-4 Postero-lateral and posterior interbody fusion 2. L3-4 interbody cage placement. 3. L3-4 decompressive laminectomy with bilateral facetecomies 4. L3-4 Posterior non-segmental instrumentation 5. L4-5 right hemilaminectomy 6. Cushing of bone marrow from iliac crest 7. Utilization of microsurgical technique and operating microscope Same procedure as scheduled: Yes Indications: Patient has been having chronic back pain and worsening lumbar radiculopathy. Patient failed multiple conservative management with worsening pain weakness and numbness in her lower extremity. Patient has been having difficulty performing activity of daily living. After discussing risks benefits of treatment options, patient elected proceed with surgery. Surgeon: Moody Calderon Management Intern: Mainor Vargas Click Yes if Unassisted: No Anesthesia Type: General Operative Notes Closure Type: primary Specimen(s): none sent Prosthetic devices, grafts, tissues, transplants, or devices: Globus revolve screws, Rise cage Estimated Blood Loss (mL): 50 Blood products transfused: none Patient admitted to the hospital for the above-mentioned procedures. Patient consented to the same. Patient taken to the OR on November 05, 2020. Patient ba ck in his room recovering well as in stable condition. Patient will be discharged home in stable condition today. Status at Discharge Cognitive/behavioral status at discharge: oriented Functional status at discharge: uses cane/walker Overall status at discharge: patient is progressing back to baseline Exam Vital Signs (past 8 hours): - 11/06/20 05:57 11/06/20 10:00 Temperature 97.3 F L 96.9 F L Pulse Rate 68 67 Respiratory Rate 16 18 Blood Pressure 128/81 133/81 Pulse Oximetry 95 94 Oxygen Delivery Method Room Air Oxygen Flow Rate 0 Narrative Exam Narrative: Pleasant 70-year-old male sitting comfortably in his chair, no acute distress. Incision is clean dry intact. Bilateral lower extremities with normal motor functions, sensation is also grossly intact to light touch bilaterally in his lower extremities. Both legs are warm and dry. Bilateral calves are soft, nontender to palpation. [facility] Medical History Arthritis Fatty liver Former smoker HTN (hypertension) NYDIA (obstructive sleep apnea) Prostate cancer (~12/2018) Sciatica Shortness of breath Umbilical hernia Surgical History Hx of arthroscopy of right knee Hx of fusion of cervical spine (~2003) Hx of transurethral resection of prostate Social History household members: spouse Smoking Status: Former smoker alcohol intake: current Discharge Assessment & Plan Assessment and Plan Assessment: Patient progressing as expected status post lumbar fusion Plan of Treatment: Weight-bearing as tolerated, limit bending, twisting, lifting. Patient given tramadol for rjad-[id number] pain. Prescription of oxycodone also provided for breakthrough moderate to severe pain. Discharge home today in stable condition. Discharge Plan Discharge Plan Patient Disposition: Home Discharge orders & Medications Prescriptions: New tramadol 50 mg Tablet 50 mg PO Q4H PRN (Reason: Pain, Mild (1-3)) Qty: 40 RF: 0 oxycodone 5 mg Tablet 10 mg PO Q3HR PRN (Reason: Pain, Severe (7-10)) Qty: 10 RF: 0 acetaminophen 325 mg Tablet 500 mg PO Q6HR PRN (Reason: Pain, Mild (1-3)) Qty: 60 RF: 0 docusate sodium [DOK] 100 mg Capsule 100 mg PO BID PRN (Reason: constipation) Qty: 20 RF: 0 Continued ipratropium-albuterol 0.5 mg-3 mg(2.5 mg base)/3 mL Solution For Nebulization 3 ml INHALATION Q4-6H PRN (Reason: Shortness Of Breath) RF: 0 oxybutynin chloride 5 mg Tablet Extended Release 24hr 10 mg PO DAILY RF: 0 hydrochlorothiazide 25 mg Tablet 25 mg PO DAILY RF: 0 albuterol sulfate 90 mcg/actuation Hfa Aerosol Inhaler 2 puff INHALATION Q4-6H PRN (Reason: Shortness Of Breath) RF: 0 gabapentin 300 mg Tablet 300 mg PO DAILY RF: 0 Follow up/Referrals: Moody Calderon MD [Physician] - (2 weeks) Jaime Arrington MD [Primary Care Provider] - Diet/Activity/Treatments Diet: Diet as Tolerated and Regular Activity: Weight-bearing as tolerated. Limit bending, lifting, twisting Cold/Heat Therapy: Ice as needed for pain Other treatments: May shower after 2 days. No soaking, submerging, ointments over the incision. Change to dry dressing after Skin/Wound/Dressing Care Report to your healthcare provider any signs of infection, such as:: chills, fever, night sweats, unusual drainage and unusual redness Dressing: Keep clean and dry. May change as needed if soiled or saturated. Visit Report/Discharge Packet Instructions: How to Prevent Falls, DI for Prescription Opioid Use, DI for Transforaminal Lumbar Interbody Fusion Stand Alone Forms: Surgery Discharge Discharge Data Primary Care Provider: Jaime Arrington
--- NOTE | 2020-11-06 11:18 | CM.DANOTE ---
Patient is a 70 yo male who was admitted on 11/05/20 for TLIF. Pt has [facility] and [facility] for insurance and his PCP is Dr. Narendra Arrington. EMR was reviewed. Per Ortho MD, pt tolerated procedure well and is ambulating well and can d/c later today after further PT with no identified barriers to discharge. Per RN, pt is ambulating steadily to bathroom with walker and in room and no concerns at this time. Per PT, completing CG training with spouse bedside around [id number] and recommendation is home with spouse assist and outpt PT. SW met bedside with pt and explained role and he confirms that he lives in [place] with spouse and is active and independent at baseline and drives. Pt denies any hx of HH or SNF and DPOA is spouse Lo. Pt denies any DME for ambulation at baseline and both pt and spouse are retired and spouse able to assist at d/c. Plan: Patient to d/c home today via spouse POV and outpt f/u with Ortho and outpt PT. No further SW needs at this time. YAZ Ortiz Discharge Planning/Care Management Advanced directive, confirm from FAMILY Start: 11/05/20 12:50 Freq: Q24H Status: Active Protocol: Document 11/05/20 12:50 YAD (Rec: 11/05/20 12:51 YAD [id number]) Advance Directive, confirm on record Time 12:50 Person contacted Jose Copy received No CM Discharge Assessment Start: 11/06/20 11:17 Freq: Status: Active Protocol: Document 11/06/20 11:17 BF (Rec: 11/06/20 11:18 BF [id number]) Discharge Planning Assessment Assigned Facilities Planner YAZ Hager DPOA/Assigned Designee Name spouse Lo Contact Information [phone] Advance Directives? Yes Advance Directives on File No History Provided By Patient,Medical Record Has Patient been admitted in last 30 No days? Prior Living Arrangements House Household Members spouse Type of transporation used prior to Drives own vehicle admit Independent with ADL's Yes Is patient alert and oriented? Yes Caregiver for Another No Community Services used prior to Physical Therapy admission: Patient/Family Preference OP PT Therapy Barriers to Discharge No Discharge Plan Home Community Services Physical Therapy Transportation Arrangement Spouse bedside and can transport today Referrals Initiated None needed Whiteboard Updated in Patient Room with Yes name and ext. # of Facilities Planner Review Status In Process Please Provide Date Initial DC 11/06/20 Assessment Was Performed Next Review Type Continued Stay Review Pre-Anesthesia Assessment Start: 10/29/20 12:47 Freq: Status: Complete Protocol: Document 10/29/20 12:47 CAB (Rec: 10/29/20 13:40 CAB [id number]) Pre-Anesthesia Assessment PAC Comment Pt states he is a binge drinker on Mondays (5-6 beers) and on s. Preferred Name Deon Patient Information Reviewed Via Phone Assessment Assessment Completed With Patient Diagnostic Results BMP/CMP,CBC,EKG,Urinalysis Comment Labs/EKG @ [facility], COVID screen @ [facility] 11/03/20 Primary Care Provider Jaime Arrington Seen Specialist in Last 12 Months Yes Specialist Seen Oncologist,Orthopedist Primary Language Kiswahili Mutual Funds Agent Required No Height 177.8 cm Weight 113.398 kg Body Mass Index (BMI) 35.9 Hearing Ability Normal Visual Assist Glasses Dentition Type Teeth, Natural Present,Teeth, Missing Barriers to Learning None Hx Anesthesia Reactions Yes: Pulled out IVs, doesn't remember specifics Additional comment No longer uses CPAP, states resolves after quitting smoking Hx Family Anesthesia Reaction No Hx Malignant Hyperthermia No Hx Blood Transfusions No Anesthesia Review Requested No alcohol intake current alcohol intake frequency 3 or more drinks per day Alcohol Intake Frequency Other: 5-6 beers on Mondays, binge drinkers Smoking Status Former smoker Tobacco type cigarettes how long ago did patient quit smoking Quit 1991 Substance Use Type marijuana Comment Advised not to smoke marijuana 24 hours prior Pain Present Pain Reported Musculoskeletal Symptoms Back Pain,Joint Pain History of Falling (Recent or History of No ) Patient is completely paralyzed or No completely immobile Mental Status Oriented to own ability Is patient on oxygen? No Does patient have WILL/SOB Yes Hx Sleep Apnea Yes: No longer uses CPAP, states resolves after quitting smoking Currently Taking a Beta Laz No Can You Climb a Flight of Stairs Without No SOB Hx Chest Pain No Hx SOB Yes Hx Syncope or Dizziness No Anti-Coagulant Therapy No Has a Show Host/Hostess No Cardiac Testing No Hx Pacemaker/ICD No Pacemaker Rep Required? No Cardiac Clearance Received Not Applicable Diet Type At Home Regular,Low Carb dysphagia Yes: Occasional after cervical surgery Gastrointestinal Symptoms Diarrhea Bladder Pattern Frequency,Incontinent,Urgency Urinary Catheter Present No Hx Urinary Self Catheterization No Diabetes No Hx Drug Resistant Organism No Presence of External or Internal Medical Yes: Cervical fusion Devices Have you had any close contact with No someone diagnosed with COVID-19? Marital Status Lives With spouse Prior Living Arrangements House Number of Floors (Floors) One Floor Support System Spouse Does the Patient Have Assistance After Yes Surgery Patient Discharge Plan Description Return Home Comment Pt advised overnight length of stay per surgeon Feels Safe in Current Environment Yes Been Physically Hurt or Threatened By a No Person in Current Environment Do you have thoughts of harming yourself None or others? Are you currently considering suicide? No Do you have a plan to hurt yourself or No Plan others? Do You Have Any Spiritual Beliefs That No May Affect Your HC Choices? Do You Have Any Cultural Practices That No May Affect Your HC Choices? Who Can We Speak to About Patient's Care Family, friends Identifying Code for Release of Patient Declines to issue Information Health Care Proxy/Next of Kin Lo Hammond () Health Care Proxy Emergency Contact Name Lo Hammond () Emergency Contact Advance Directives? Yes Power of Forensic Manager Yes Power of Forensic Manager Name Lo Hammond () Power of Forensic Manager PAC Instructions Durable medical equipment, Medications to take/avoid, Nasal antibiotic,No ETOH/ petroleum product on skin DOS, NPO,Post-op transportation,Pre -surgical wash,Sturdy shoes/ comfortable clothes,Do not bring valuables and remove jewelry
[2020-11-06] MEDS: TRAMADOL 50 MG TABLET 100 MG PO (11:41)
--- NOTE | 2020-11-06 11:45 | PC.NURSE ---
Day shift: Paperwork signed and all questions answered. Spouse was in room for d/c teachings. Pt has all personal belongings. MD scripts sent to Pt's pharmacy and also Pt had paper scripts that need to be filled. Dressing on his back remains CDI. CMS intact and Pt mobilizing very well this AM. Taken to car in by [employer] LAT[employer] OPERATOR INSIDE. Pt's spouse is driving him home today. Encouraged Pt to not drink any alcohol until his back surgery is completely healed. Encouraged to take BM meds as long as he is taking the narcotic pain meds. Also encouraged to drink plenty of water. Pt stated I'm very happy to be going home today.
== END 2020-11-06 11:49 | disposition home or self-care (01) | DRG 455 ==
LOC: OR 06:11 → AC 06:12
PROVIDERS: Admitting Provider Orthopaedic Surgery Orthopaedic Surgery of the Spine; PCP Family Medicine; Referring Provider Orthopaedic Surgery Orthopaedic Surgery of the Spine; Visit Provider Orthopaedic Surgery Orthopaedic Surgery of the Spine
PROC: 0SG00AJ Fusion of Lumbar Vertebral Joint with Interbody Fusion Device, Posterior Approach, Anterior Column, Open Approach (ICD-10-PCS; principal; 2020-11-05 07:45)
DX: M48.061 Spinal stenosis, lumbar region without neurogenic claudication (principal); M47.26 Other spondylosis with radiculopathy, lumbar region; I10 Essential (primary) hypertension; J42 Unspecified chronic bronchitis; E66.9 Obesity, unspecified; Z68.35 Body mass index [BMI] 35.0-35.9, adult; Z87.891 Personal history of nicotine dependence; Z20.822 Contact with and (suspected) exposure to COVID-19
CPT/HCPCS: 72100; 76000; 82962; 87635; 94762; 97116; 97161; 97165; 97535; C1776; C9803; C9290; J0330; J0690; J1100; J1170; J2405; J2704; J3010